=== PATIENT | female | born 1970 | race Caucasian/White ===

== ENCOUNTER 2023-08-03 12:23 | Inpatient (IN) | payer OTHER ==
[~2023-08-03] VITALS: Ht 170.2 cm; Wt 67.1 kg
[2023-08-03] VITALS (9 sets, daily range): BP systolic 99–133; PULSE 63–110; RESP 18–22; TEMP 97.7–99; O2SAT 95–100
[2023-08-03] MEDS: METOCLOPRAMIDE HCL 10 MG/2 ML VIAL IVP ONE (12:52)
[2023-08-03] MEDS: MECLIZINE HCL 25 MG TABLET (ANITVERT) PO ONE (12:53)
[2023-08-03 12:54] LABS: BASOPHILS # (AUTO) 0.1 K/uL (0.0-0.2); BASOPHILS % (AUTO) 0.3 % (0.0-2.0); HEMATOCRIT 38.8 % (36-48); HEMOGLOBIN 12.1 g/dL (12.0-16.0); LYMPHOCYTES # (AUTO) 0.6 K/uL (1.0-5.5); LYMPHOCYTES % (AUTO) 3.3 % (20.5-51.5); MEAN CORPUSCULAR HEMOGLOBIN 28 pg (27-31); MEAN CORPUSCULAR HGB CONC 31 % (32-36); MEAN CORPUSCULAR VOLUME 91 fL (79.0-98.0); MONOCYTES # (AUTO) 0.7 K/uL (0.0-1.0); MONOCYTES % (AUTO) 4.2 % (1.7-9.3); NEUTROPHILS # (AUTO) 15.6 K/uL (1.8-7.7); NEUTROPHILS % (AUTO) 92.2 % (40.0-70.0); PLATELET COUNT (AUTO) 311 K/uL (130-430); RED BLOOD CELL COUNT(AUTO) 4.27 MIL/uL (4.2-6.2); RED CELL DISTRIBUTION WIDTH 16.5 % (9.0-15.0); WHITE BLOOD COUNT (AUTO) 16.9 K/uL (4.8-10.8)
[2023-08-03 13:06] LABS: ACETONE, SERUM POSITIVE (NEGATIVE)
[2023-08-03 13:21] LABS: ALANINE AMINOTRANSFERASE 19 U/L (12-78); ALBUMIN 3.5 g/dL (3.4-4.8); AMYLASE 277 U/L (0-100); ANION GAP 38 (5-15); ASPARTATE AMINOTRANSFERASE 12 U/L (10-37); BILIRUBIN,DIRECT 0.1 mg/dL (0.0-0.3); CALCIUM 9.2 mg/dL (8.4-11.0); CHLORIDE 93 mmol/L (98-107); CREATININE 2.08 mg/dL (0.55-1.30); GFR AFRICAN AMERICAN 32 mL/min (>90); LIPASE 1273 U/L (16-77); POTASSIUM 5.5 mmol/L (3.5-5.1); SODIUM SERUM 138 mmol/L (136-145); TOTAL BILIRUBIN 0.6 mg/dL (0.0-1.0); TOTAL PROTEIN, SERUM 7.7 g/dL (6.4-8.3); UREA NITROGEN, BLOOD 45 mg/dL (8-21)
[2023-08-03 13:22] LABS: GFR NON AFRICAN-AMERICAN 27 mL/min (>90)
[2023-08-03 13:23] LABS: CARBON DIOXIDE 7 mmol/L (23-29); GLUCOSE 638 mg/dL (74-106)
[2023-08-03] MEDS ORDERED: PIPERACILLIN/TAZO 4.5GM/DEX-IS 100 ML IV SCH (13:30)
[2023-08-03] MEDS ORDERED: ZOLPIDEM TARTRATE 5 MG TABLET PO PRN (13:45)
[2023-08-03] MEDS ORDERED: LORazepam 2 MG/ML VIAL IVP PRN (13:45)
[2023-08-03] MEDS ORDERED: DEXTROSE 50% JECT 50 ML DISP.SYRIN IVP PRN (13:45)
[2023-08-03] MEDS ORDERED: POTASSIUM CHLORIDE 20 MEQ TABLET.ER PO PRN (13:45)
[2023-08-03] MEDS: NACL 0.9% 1,000 ML IV ONE ×2 (13:45→14:11)
[2023-08-03] MEDS ORDERED: DOCUSATE SODIUM 100 MG CAPSULE PO PRN (13:45)
[2023-08-03] MEDS ORDERED: MUPIROCIN 2% TOPICAL OINTMENT 22 GM NS PRN (13:45)
[2023-08-03] MEDS ORDERED: MORPHINE 2 MG/ML INJ. SYRINGE IVP PRN ×2 (13:45)
[2023-08-03] MEDS ORDERED: MAGNESIUM SULFATE 50 ML IV PRN (13:45)
[2023-08-03] MEDS ORDERED: INSULIN REGULAR, HUMAN 100 UNITS in NS 99 ML IV PRN ×2 (13:45→16:45)
[2023-08-03 14:14] LABS: ABG O2 SAT% ESTIMATE 97.5 % (94.0-100.0); BLOOD GAS BASE EXCESS -23.2 mmol/L (-3.0-3.0); BLOOD GAS PO2 124.8 mmHg (75.0-100.0)
[2023-08-03 14:22] LABS: BLOOD GAS PCO2 10.8 mmHg (35.0-45.0); BLOOD GAS PH 7.133 (7.350-7.450)
[2023-08-03] MEDS: PIPERACILLIN/TAZOBACTAM 2.25 GM in D5W 50 ML IV ONE (14:22)
[2023-08-03 14:23] LABS: BLOOD GAS HCO3 3.5 mmol/L (21.0-27.0)
[2023-08-03] MEDS: INSULIN REGULAR, HUMAN 10 UNITS/0.1 ML, 3 ML VIAL IVP ONE (14:26)
[2023-08-03 14:35] LABS: ANION GAP 40 (5-15); CALCIUM 9.5 mg/dL (8.4-11.0); CHLORIDE 93 mmol/L (98-107); CREATININE 2.04 mg/dL (0.55-1.30); GFR AFRICAN AMERICAN 33 mL/min (>90); POTASSIUM 5.7 mmol/L (3.5-5.1); SODIUM SERUM 138 mmol/L (136-145); UREA NITROGEN, BLOOD 46 mg/dL (8-21)
[2023-08-03] MEDS ORDERED: ROSU5TAB13 PO (14:35)
[2023-08-03] MEDS ORDERED: NPH,100I SUBCUT (14:35)
[2023-08-03] MEDS ORDERED: METF-1069 PO (14:35)
[2023-08-03] MEDS ORDERED: EMPA25TA PO (14:35)
[2023-08-03 14:36] LABS: ALLEN'S TEST POSITIVE (P)
[2023-08-03 14:39] LABS: GFR NON AFRICAN-AMERICAN 27 mL/min (>90)
[2023-08-03 14:40] LABS: CARBON DIOXIDE < 5 mmol/L (23-29)
[2023-08-03 14:41] LABS: GLUCOSE 648 mg/dL (74-106)
[2023-08-03] MEDS: INSULIN REGULAR, HUMAN 100 UNITS in NS 99 ML IV ONE (14:46)
[2023-08-03] MEDS ORDERED: ACETAMINOPHEN 500 MG TABLET PO PRN (15:15)
[2023-08-03] MEDS: NACL 0.9% 1,000 ML IV SCH (15:44)
[2023-08-03] MEDS: VANCOMYCIN HCL 1.25 GM/NS 250 ML IV ONE (16:22)
[2023-08-03 18:17] LABS: CALCIUM 8.6 mg/dL (8.4-11.0); CREATININE 2.01 mg/dL (0.55-1.30); PHOSPHORUS 6.8 mg/dL (2.7-4.5); POTASSIUM 4.7 mmol/L (3.5-5.1)
[2023-08-03] MEDS: PIPERACILLIN/TAZOBACTAM 2.25 GM in D5W 50 ML IV SCH (20:41)
[2023-08-03] MEDS: ONDANSETRON HCL 4 MG/2 ML VIAL IVP PRN (21:03)
[2023-08-03 21:47] LABS: CALCIUM 8.4 mg/dL (8.4-11.0); CREATININE 1.84 mg/dL (0.55-1.30); POTASSIUM 4.1 mmol/L (3.5-5.1)
[2023-08-03 22:02] LABS: PHOSPHORUS 3.1 mg/dL (2.7-4.5)
[2023-08-03] MEDS: 0.45% NACL 1,000 ML IV SCH (22:43)
[2023-08-04] VITALS (24 sets, daily range): BP systolic 118–151; PULSE 96–104; RESP 11–25; TEMP 98.6–99.5; O2SAT 90–99
[2023-08-04 02:07] LABS: CALCIUM 8.2 mg/dL (8.4-11.0); CREATININE 1.74 mg/dL (0.55-1.30); POTASSIUM 3.7 mmol/L (3.5-5.1)
[2023-08-04] MEDS ORDERED: INSULIN REGULAR, HUMAN 100 UNITS in NS 99 ML IV PRN (03:00)
[2023-08-04] MEDS: D5W 1,000 ML IV SCH (03:26)
[2023-08-04 07:13] LABS: BASOPHILS % (AUTO) 0.2 % (0.0-2.0); HEMOGLOBIN 10.9 g/dL (12.0-16.0); LYMPHOCYTES # (AUTO) 0.8 K/uL (1.0-5.5); MEAN CORPUSCULAR HEMOGLOBIN 28 pg (27-31); MEAN CORPUSCULAR HGB CONC 33 % (32-36); MEAN CORPUSCULAR VOLUME 85 fL (79.0-98.0); MONOCYTES # (AUTO) 0.8 K/uL (0.0-1.0); MONOCYTES % (AUTO) 4.8 % (1.7-9.3); PLATELET COUNT (AUTO) 299 K/uL (130-430); RED CELL DISTRIBUTION WIDTH 16.2 % (9.0-15.0); WHITE BLOOD COUNT (AUTO) 16.7 K/uL (4.8-10.8)
[2023-08-04 07:31] LABS: CALCIUM 8.2 mg/dL (8.4-11.0); CREATININE 1.7 mg/dL (0.55-1.30); PHOSPHORUS 3.5 mg/dL (2.7-4.5); POTASSIUM 3.8 mmol/L (3.5-5.1)
[2023-08-04 07:44] LABS: CHOLESTEROL 217 mg/dL (<200); HDL CHOLESTEROL 100 mg/dL (>55); TRIGLYCERIDES 67 mg/dL (30-150)
[2023-08-04] MEDS: METOCLOPRAMIDE HCL 10 MG/2 ML VIAL IVP ONE (08:36)
[2023-08-04 09:50] LABS: CALCIUM 8.1 mg/dL (8.4-11.0); CREATININE 1.63 mg/dL (0.55-1.30); POTASSIUM 3.7 mmol/L (3.5-5.1)
[2023-08-04] MEDS: METOCLOPRAMIDE HCL 10 MG/2 ML VIAL IVP SCH (13:22)
[2023-08-04 15:19] LABS: CREATININE 1.53 mg/dL (0.55-1.30); PHOSPHORUS 2.6 mg/dL (2.7-4.5); POTASSIUM 3.5 mmol/L (3.5-5.1); PROTHROMBIN TIME 10.4 SECS (9.5-12.5)
[2023-08-04] MEDS: INSULIN GLARGINE 100 UNITS/ML, 10 ML VIAL SUBCUT SCH (17:04)
[2023-08-04 17:59] LABS: CALCIUM 7.9 mg/dL (8.4-11.0); CREATININE 1.44 mg/dL (0.55-1.30); POTASSIUM 3.3 mmol/L (3.5-5.1)
[2023-08-04] MEDS ORDERED: KCL 20 mEq in D5W 1000 mL 1,000 ML IV ONE (19:00)
[2023-08-04] MEDS: KCL 20 mEq in 100 mL (PREMIX) 100 ML IV ONE ×2 (19:45→21:01)
[2023-08-04] MEDS: INSULIN LISPRO SLIDING SCALE 100 UNITS/ML, 3 ML VIAL (humaLOG) SUBCUT PRN (21:08)
[2023-08-05] VITALS (11 sets, daily range): BP systolic 120–159; PULSE 88–101; RESP 13–22; TEMP 97.9–98.8; O2SAT 91–98
[2023-08-05 05:39] LABS: HEMOGLOBIN 10.7 g/dL (12.0-16.0); LYMPHOCYTES % (AUTO) 6.4 % (20.5-51.5); MEAN CORPUSCULAR HEMOGLOBIN 28 pg (27-31); MEAN CORPUSCULAR HGB CONC 33 % (32-36); MEAN CORPUSCULAR VOLUME 85 fL (79.0-98.0); MONOCYTES # (AUTO) 0.8 K/uL (0.0-1.0); MONOCYTES % (AUTO) 5.1 % (1.7-9.3); NEUTROPHILS # (AUTO) 13.4 K/uL (1.8-7.7); NEUTROPHILS % (AUTO) 88.5 % (40.0-70.0); PLATELET COUNT (AUTO) 247 K/uL (130-430); RED BLOOD CELL COUNT(AUTO) 3.79 MIL/uL (4.2-6.2); RED CELL DISTRIBUTION WIDTH 16.3 % (9.0-15.0); WHITE BLOOD COUNT (AUTO) 15.1 K/uL (4.8-10.8)
[2023-08-05 06:05] LABS: CALCIUM 7.9 mg/dL (8.4-11.0); CREATININE 1.23 mg/dL (0.55-1.30); POTASSIUM 3.4 mmol/L (3.5-5.1)
[2023-08-05] MEDS: PANTOPRAZOLE SODIUM 40 MG/VIAL (PROTONIX) IVP ONE (10:50)
[2023-08-05] MEDS: KCL 40 mEq in 100 mL (PREMIX) 100 ML IV ONE (10:52)
[2023-08-05] MEDS ORDERED: PANTOPRAZOLE SODIUM 40 MG/VIAL (PROTONIX) IVP SCH (21:00)
== END 2023-08-05 15:15 | disposition short-term general hospital (02) | DRG 871 ==
LOC: SED 12:23 → SIC 14:33
PROVIDERS: ADMIT General Practice; ATTEND General Practice
DX: A41.9 Sepsis, unspecified organism (principal); E11.10 Type 2 diabetes mellitus with ketoacidosis without coma; N17.0 Acute kidney failure with tubular necrosis; E87.0 Hyperosmolality and hypernatremia; E87.5 Hyperkalemia; E83.51 Hypocalcemia; K80.20 Calculus of gallbladder without cholecystitis without obstruction; Z79.899 Other long term (current) drug therapy
CPT/HCPCS: 36415; 36600; 70450-TC; 71045; 76700; 80048; 80061; 80076; 82009; 82150; 82803; 82948; 83037; 83605; 83690; 83735; 84100; 84484; 85025; 85610; 85730; 87040; 87081; 93005; 99291; C9113; J1815; J2405; J2543; J2765; J3370; J3480; J7060; J8597